=== PATIENT | female | born 1965 | race Caucasian/White ===

== ENCOUNTER 2016-12-21 14:46 | Emergency (ER) | payer OTHER ==
[~2016-12-21 14:46] MED LIST: BUPR150T8 PO; HYDR-971 PO; IBUP-1060 PO
[2016-12-21 14:49] VITALS: BP 148/91
--- NOTE | 2016-12-21 15:24 | PHYS DOC ---
Past Medical History Past Medical History: Other Additional Past Medical Histor: CARPAL TUNNEL, BRADYCARDIA Past Surgical History: Appendectomy, Cholecystectomy, Hysterectomy, Other Additional Past Surgical Histo: PARTIAL HYSTER Alcohol Use: None Drug Use: None Adult General Chief Complaint Chief Complaint: COUGH HPI HPI Patient is a 51 year old female who presents with a productive cough that began 2 days ago. Patient denies any fever. Patient states she has tried Tessalon Perles with no relief. She states her son is getting today at 7 PM. Review of Systems Review of Systems Constitutional: See history of present illness Eyes: Denies change in visual acuity, redness, or eye pain [] HENT: Denies nasal congestion or sore throat [] Respiratory: cough Cardiovascular: No additional information not addressed in HPI [] GI: Denies abdominal pain, nausea, vomiting, bloody stools or diarrhea [] : Denies dysuria or hematuria [] Musculoskeletal: Denies back pain or joint pain [] Integument: Denies rash or skin lesions [] Neurologic: Denies headache, focal weakness or sensory changes [] Endocrine: Denies polyuria or polydipsia [] Current Medications Current Medications Current Medications Medications (Trade) Dose Ordered Sig/Ashely Start Time Stop Time Status Last Admin Dose Admin Albuterol/ Ipratropium (Duoneb) 3 ml 1X ONCE 12/21/16 15:30 12/21/16 15:31 DC 12/21/16 15:33 3 ML Benzonatate (Tessalon Perle) 200 mg 1X ONCE 12/21/16 15:30 12/21/16 15:31 DC 12/21/16 15:33 200 MG Prednisone (Prednisone) 60 mg 1X ONCE 12/21/16 15:30 12/21/16 15:31 DC 12/21/16 15:33 60 MG Allergies Allergies Allergies Coded Allergies Type Severity Reaction Last Updated Verified No Known Drug Allergies 10/22/13 No Physical Exam Physical Exam Constitutional: Well developed, well nourished, no acute distress, non-toxic appearance. [] HENT: Normocephalic, atraumatic, bilateral external ears normal, oropharynx moist, no oral exudates, nose normal. [] Eyes: PERRLA, EOMI, conjunctiva normal, no discharge. [] Neck: Normal range of motion, no tenderness, supple, no stridor. [] Cardiovascular:Heart rate regular rhythm, no murmur [] Lungs & Thorax: Bilateral breath sounds clear to auscultation [] Abdomen: Bowel sounds normal, soft, no tenderness, no masses, no pulsatile masses. [] Skin: Warm, dry, no erythema, no rash. [] Back: No tenderness, no CVA tenderness. [] Extremities: No tenderness, no cyanosis, no clubbing, ROM intact, no edema. [] Neurologic: Alert and oriented X 3, normal motor function, normal sensory function, no focal deficits noted. [] Psychologic: Affect normal, judgement normal, mood normal. [] Current Patient Data Vital Signs Vital Signs Date Time Temp Pulse Resp B/P Pulse Ox O2 Delivery O2 Flow Rate FiO2 12/21/16 15:33 100 Room Air 12/21/16 14:49 98.1 99 20 148/91 98.1 EKG EKG [] Radiology/Procedures Radiology/Procedures [] Course & Med Decision Making Course & Med Decision Making Pertinent Labs and Imaging studies reviewed. (See chart for details) Patient is in the ED with a productive cough for 2 days. Her son is getting today at 7 PM. She has no fever. O2 sats 100% on room air. Patient's symptoms are probably viral. He was given prednisone in the ED. She is given a DuoNeb treatment. Chest x-ray is negative for any acute findings. Discharged with prednisone for 4 more days, breathing treatments and cough medicine. Follow -up with her PCP next week. Stephanie Disclaimer Stephanie Disclaimer This electronic medical record was generated, in whole or in part, using a voice recognition dictation system. Departure Departure Impression: Primary Impression: Viral bronchitis Disposition: 01 HOME, SELF-CARE Condition: STABLE Referrals: NO PCP (PCP) Follow-up with your doctor next week Patient Instructions: Acute Bronchitis Additional Instructions: You were seen with symptoms consistent with viral bronchitis. Take the prescribed medicines as ordered. Follow-up with your doctor next week. Come back to the ED if symptoms worsen. Scripts Benzonatate (Tessalon Perle)100 Mg Capsule1 Cap PO TID #30 CAP Prov:MUTUNGA,LAKHWINDER [employer] 12/21/16 Hydrocodone/Chlorphen Polis (Tussionex Pennkinetic Susp)480 Ml Amisha.[id number] Ml PO Q6-8HRS PRN COUGH #50 ML Prov:MUTUNGA,LAKHWIND[employer] 12/21/16 Albuterol Sulfate (Proair Respiclick)90 Mcg Aer.pow.[id number] Puff IH PRN Q6HRS PRN SHORTNESS OF BREATH #1 INHALER Prov:LAKHWINDER LAWRENCE APRN 12/21/16 Prednisone 50 Mg Tablet1 Tab PO DAILY #4 TAB Prov:LAKHWINDER LAWRENCE APRN 12/21/16 LAKHWINDER LAWRENCE APRN Dec 21, 2016 15:24
[2016-12-21] MEDS ORDERED: BENZONATATE 100 MG CAPSULE. PO ONE (15:30)
[2016-12-21] MEDS ORDERED: PREDNISONE 20 MG TABLET PO ONE (15:30)
[2016-12-21] MEDS ORDERED: IPRATRPIUM/ALBUTEROL 0.5/2.5MG 3 ML NEBU. NEB ONE (15:30)
[2016-12-21] MEDS ORDERED: BENZ100C PO (16:09)
[2016-12-21] MEDS ORDERED: PROAIR RESPICL90 MCG IH (16:09)
[2016-12-21] MEDS ORDERED: HYDR115S2 PO (16:09)
[2016-12-21] MEDS ORDERED: PRED50TA PO (16:09)
--- NOTE | 2016-12-22 09:51 | RAD ---
PA and lateral chest radiographs 12/21/2016 Clinical history: Cough. PA and lateral digital radiographs the chest were obtained. Comparison study is dated 08/23/2015. The cardiac silhouette is normal in size. The thoracic aorta is mildly tortuous. No acute pulmonary infiltrate is seen. No pleural effusion or pneumothorax is noted. Surgical clips are seen within the right upper quadrant abdomen consistent with a cholecystectomy. Degenerative changes are seen involving the thoracic spine. Impression: No acute abnormality is seen.
== END 2016-12-21 16:16 | disposition home or self-care (01) ==
LOC: ER 14:46
DX: J20.8 Acute bronchitis due to other specified organisms (principal); Z90.49 Acquired absence of other specified parts of digestive tract; Z90.710 Acquired absence of both cervix and uterus
CPT/HCPCS: 71020; 94250; 94640; 99284; J7512; J7620